=== PATIENT | female | born 1995 | race Caucasian/White ===

== ENCOUNTER 2017-05-29 08:42 | Emergency (ER) | END 2017-05-29 14:41 | disposition home or self-care (01) ==

== ENCOUNTER 2017-05-31 08:31 | Emergency (ER) | END 2017-05-31 09:30 | disposition home or self-care (01) ==

== ENCOUNTER 2018-01-12 07:08 | Emergency (ER) | END 2018-01-12 07:56 | disposition home or self-care (01) ==

== ENCOUNTER 2018-03-05 17:50 | Emergency (ER) | END 2018-03-05 21:29 | disposition home or self-care (01) ==